=== PATIENT | male | born 1955 | race Two or more races ===

== ENCOUNTER 2017-10-02 12:47 | Emergency (ER) | payer BC ==
[2017-10-02 12:52] VITALS: BP 119/74; PULSE 100; TEMP 99; BMI 21.9
--- NOTE | 2017-10-02 14:34 | PDOC ---
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 Pt reports this has been happening intermittently since New Year's however it has always resolved without any intervention. Pt reports this current swelling has been going on for about one week, however he came for evaluation today due to his edema not resolving and his legs becoming painful. He endorses some warmth in his legs with erythema, however the erythema has mostly resolved. He denies any lesions, lacerations, abrasions, and weeping of his leg. Pt denies fever/chills , SOB, CP/discomfort, palpitations, abdominal pain, difficulties urinating ( including dysuria and polyuria), back pain. Pt admits to intermittently eating salty foods, however only had some salted sunflower seeds recently. Pt denies any long car rides, plane flights, exogenous hormones. PCP: Dr. Anne ([place]?) <Stephan Last - Last Filed: 10/02/17 23:39> - General Chief Complaint: Edema Stated Complaint: LEG PAIN (PCP SENT) Time Seen by Provider: 10/02/17 14:24 Past History <Aki Beckman - Last Filed: 10/02/17 17:45> - Past Medical History COPD: No - Suicide/Smoking/Psychosocial Hx Smoking History: Current every day smoker Have you smoked in the past 12 months: Yes Number of Cigarettes Smoked Daily: 30 Information on smoking cessation initiated: Yes 'Breaking Loose' booklet given: 10/02/17 Hx Alcohol Use: No Drug/Substance Use Hx: No Substance Use Type: Alcohol <Stephan Last - Last Filed: 10/02/17 23:39> - Past Medical History Allergies/Adverse Reactions: Allergies Allergy/AdvReac Type Severity Reaction Status Date / Time No Known Allergies Allergy Verified 10/02/17 12:48 Review of Systems - Review of Systems Able to Perform ROS?: Yes Constitutional: No: Chills, Fever, Night Sweats, Weakness HEENTM: No: Blurred Vision, Nose Congestion, Throat Pain Respiratory: No: Cough, Shortness of Breath, Wheezing Cardiac (ROS): Yes: Edema. No: Chest Pain, Irregular Heart Rate, Lightheadedness, Palpitations, Syncope, Chest Tightness ABD/GI: No: Abdominal Distended, Constipated, Diarrhea, Nausea, Vomiting, Abdominal cramping : No: Dysuria, Frequency, Flank Pain, Incontinence Musculoskeletal: No: Back Pain, Neck Pain Integumentary: Yes: Erythema. No: Lesions, Rash Neurological: No: Headache, Numbness, Pre-Existing Deficit, Tingling Psychiatric: No: Anxiety, Depression Endocrine: No: Increased Thirst Hematologic/Lymphatic: No: Blood Clots, Easy Bleeding, Easy Bruising <Stephan Last - Last Filed: 10/02/17 23:39> *Physical Exam - Vital Signs Last Vital Signs Temp Pulse Resp BP Pulse Ox 99.0 F 100 H 18 119/74 100 10/02/17 12:49 10/02/17 12:49 10/02/17 12:49 10/02/17 12:49 10/02/17 12:49 <Aki Beckman - Last Filed: 10/02/17 17:45> - Vital Signs Last Vital Signs Temp Pulse Resp BP Pulse Ox 99.0 F 100 H 18 119/74 100 10/02/17 12:49 10/02/17 12:49 10/02/17 12:49 10/02/17 12:49 10/02/17 12:49 - Physical Exam Comments: 10/02/17 14:45 GEN: NAD, awake, alert and oriented, laying in bed HEENT: NC/AT, EOMI, JF, moist mucosa Neck: Soft, No JVD LUNGS: Diminished bibasilar breath sounds CARDIAC: RRR, 2/6 systolic murmur at the apex appreciated BACK: No CVA tenderness EXT: Warm, bilateral 3+ pitting edema without weeping noted, no lacerations/ abrasions noted, some tenderness with edema assessment, 2+ DP pulses, cap refill <2sec. <Stephan Last - Last Filed: 10/02/17 23:39> Heart Score/ECG Review #1 General ECG Interpretation: Sinus Rhythm, Normal Rate, Normal Intervals, No acute ischemic changes 05/03/18 16:45 VT interval 130ms, QTc 452 <Stephan Last - Last Filed: 10/02/17 23:39> ED Treatment Course - LABORATORY CBC & Chemistry Diagram: 10/02/17 14:50 10/02/17 14:34 - ADDITIONAL ORDERS Additional order review: Laboratory Results 10/02/17 14:34 Sodium 135 L Potassium 4.0 Chloride 104 Carbon Dioxide 23 Anion Gap 8 BUN 8 D Creatinine 0.9 Creat Clearance w eGFR > 60 Random Glucose 80 Calcium 7.6 L Total Bilirubin 1.5 H D AST 63 H D ALT 27 D Alkaline Phosphatase 218 H D Troponin I < 0.02 B-Natriuretic Peptide 1153.97 H Total Protein 6.6 Albumin 2.0 L D 10/02/17 14:50 RBC 2.69 L D MCV 101.4 H MCHC 34.5 RDW 17.3 H D MPV 8.5 Neutrophils % 64.0 Lymphocytes % 20.5 Monocytes % 13.6 H Eosinophils % 1.1 Basophils % 0.8 - Medications Given in the ED: ED Medications Discontinued Medications Generic Name Dose Route Start Last Admin Trade Name Freq PRN Reason Stop Dose Admin Folic Acid 1 mg 10/02/17 15:22 10/02/17 15:40 Folic Acid - PO 10/02/17 15:23 1 mg ONCE ONE Administration Furosemide 40 mg 10/02/17 14:35 10/02/17 14:55 Lasix Injection - IVPUSH 10/02/17 14:36 40 mg ONCE ONE Administration <Aki Beckman - Last Filed: 10/02/17 17:45> - LABORATORY CBC & Chemistry Diagram: 10/02/17 14:50 10/02/17 14:34 <Stephan Last - Last Filed: 10/02/17 23:39> Medical Decision Making - Medical Decision Making 10/02/17 14:39 Highly suspicious for new onset CHF --CBC, CMP, Troponin, BNP --CXR, EKG --Lasix 40mg IVP once --Will likely need echocardiogram and cardiology evaluation 10/02/17 15:02 CXR without effusions; labs pending 10/02/17 15:26 CBC result with macrocytic anemia --Folic acid given PO once 10/02/17 16:51 On interview with attending, pt reports drinking a 12-pack per day with his last drink at 11:30am this morning (10/02) --Librium 50mg PO once --Initiated librium protocol More likely anasarca picture with 3rd spacing of fluid 10/02/17 17:16 Pt refusing librium dosage Also refusing to be admitted --Pt and fiance present at bedside and have been made aware of the risks of refusing treatment and admission including, but not limited to worsening liver function, worsening heart function, worsening kidney function, encephalopathy, and even . Pt is of sound mind and can make decisions. 10/02/17 17:22 --Patient signed AMA; IV to be taken out by nursing staff <Stephan Last - Last Filed: 10/02/17 23:39> *DC/Admit/Observation/Transfer <Aki Beckman - Last Filed: 10/02/17 17:45> <Stephan Last - Last Filed: 10/02/17 23:39> Diagnosis at time of Disposition: Liver failure Qualifiers: Liver failure chronicity: acute Hepatic coma status: without hepatic coma Qualified Code(s): K72.00 - Acute and subacute hepatic failure without coma - Discharge Dispostion Disposition: AGAINST MEDICAL ADVICE Condition at time of disposition: Fair - Referrals Referrals: [facility] [place] [facility] [place] [Provider Group] - Patient Instructions Printed Discharge Instructions: Heart Failure, DI for Cirrhosis Additional Instructions: You are leaving the emergency department AGAINST MEDICAL ADVICE. This puts you at risk for worsening leg swelling, worsening heart function, worsening liver function, disability or even . Return to the emergency department as soon as possible to complete your evaluation. We are also providing a referral to a primary care clinic in case you would prefer to follow-up there, although we strongly advise return to the emergency department as soon as possible. - Post Discharge Activity Forms/Work/School Notes: Back to Work
[2017-10-02] MEDS ORDERED: FUROSEMIDE 40 MG/4 ML INJECTABLE VIAL IVPUSH ONE (14:35)
[2017-10-02] MEDS ORDERED: FUROSEMIDE 40 MG/4 ML INJECTABLE VIAL ONE (14:54)
[2017-10-02 15:02] LABS: BASO % 0.8 % (0-2.0); EOS % 1.1 % (0-4.5); HEMATOCRIT 27.3 % (35.4-49); HEMOGLOBIN 9.4 GM/dL (11.7-16.9); LYMPH % 20.5 % (8-40); MCHC 34.5 g/dl (32.0-35.9); MEAN CELL VOLUME 101.4 fl (80-96); MEAN PLT VOLUME 8.5 fl (7.5-11.1); MONO % 13.6 % (3.8-10.2); PLATELET COUNT 93 K/MM3 (134-434); RBC 2.69 M/mm3 (4.00-5.60); RDW 17.3 % (11.9-15.9); WHITE BLOOD COUNT 7.8 K/mm3 (4.0-10.0)
[2017-10-02] MEDS ORDERED: FOLIC ACID 1 MG TABLET (FP) PO ONE (15:22)
[2017-10-02 15:30] LABS: ANION GAP 8 (8-16); BILIRUBIN,TOTAL 1.5 mg/dL (0.2-1.0); BLOOD UREA NITROGEN 8 mg/dL (7-18); CALCIUM 7.6 mg/dL (8.5-10.1); CHLORIDE 104 mmol/L (98-107); CO2 23 mmol/L (21-32); CREATININE 0.9 mg/dL (0.7-1.3); GLUCOSE,RANDOM 80 mg/dL (74-106); SGOT/AST 63 U/L (15-37); SGPT/ALT 27 U/L (12-78); SODIUM 135 mmol/L (136-145); TOT PROT 6.6 g/dl (6.4-8.2)
[2017-10-02 15:33] LABS: ALK PHOS 218 U/L (45-117); N-TERMINAL BNP 1153.97 pg/ml (5-125)
[2017-10-02] MEDS ORDERED: FOLIC ACID 1 MG TABLET (FP) ONE (15:39)
[2017-10-02] MEDS ORDERED: chlordiazePOXIDE HCL 25 MG CAPSULE PO ONE (16:48)
[2017-10-02] MEDS ORDERED: chlordiazePOXIDE HCL 25 MG CAPSULE PO PRN (16:49)
--- NOTE | 2017-10-02 16:51 | PDOC ---
Attending Attestation - Resident Resident Name: Stephan Last - ED Attending Attestation I have performed the following: I have examined & evaluated the patient, The case was reviewed & discussed with the resident, I agree w/resident's findings & plan, Exceptions are as noted - HPI HPI: 10/02/17 17:21 The patient is a 62 year old male, with a significant past medical history of IVDA without relapses for 2 years (on methadone), ETOH abuse (daily 12 pack beer ) who presents to the emergency department with bilateral lower extremity pain, warmth and edema for the past week. The patient states that this has been intermittently occurring since June 2017 and usually resolves on its own without needing any intervention. However, the patient reports that he decided to come in today for evaluation because this current episode has been getting progressively worse instead of better. He had an US done by that vascular doctor that was reportedly negative for DVT but due to the swelling, they advised him to come to the ED. Last drink was 11am this morning. The patient denies any fever, chills, headache, dizziness, shortness of breath, chest pain, abdominal pain, back pain or dysuria. Denies tremors, hallucinations. Denies any sick contacts or recent/long travel. Allergies: None reported. Past Surgical History: None reported. Social History: Current everyday smoker (x 40 years). Denies drug use. PCP: Dr. Kim - Physicial Exam PE: 10/02/17 17:21 GENERAL: Awake, alert, and fully oriented, in no acute distress. HEAD: No signs of trauma. EYES: PERRLA, EOMI, sclera anicteric, conjunctiva clear. ENT: Auricles normal inspection, hearing grossly normal, nares patent, oropharynx clear without exudates. Moist mucosa. NECK: Normal ROM, supple, no lymphadenopathy, JVD or masses. LUNGS: Breath sounds equal, clear to auscultation bilaterally. No wheezes and no crackles. HEART: Regular rate and rhythm, normal S1 and S2, no murmurs, rubs or gallops. ABDOMEN: Soft, nontender, normoactive bowel sounds. No guarding, no rebound. No masses. No dullness to percussion. EXTREMITIES: Warm, bilateral 3+ pitting edema without weeping. No lacerations/ abrasions noted, some tenderness with edema, 2+ DP pulses, capillary refill < 2 seconds. BACK: No midline spinal tenderness in cervical/thoracic/lumbar region. NEUROLOGICAL: Normal speech, cranial nerves intact, negative pronator drift, 5/ 5 strength in all 4 extremities, normal sensation to light touch in all 4 extremities, normal cerebellar exam, normal gait, normal reflexes and tone. SKIN: Warm, dry, normal turgor, no rashes or lesions noted. - Medical Decision Making 10/02/17 16:49 62yo M hx IVDU now on methadone maintenance, daily etoh abuse presents to the ED with 3 months of LE edema. Vitals unremarkable. Exam with 3+ symmetric LE edema. Labs with macrocytic anemia, thrombocytopenia, hypoalbunemia, mildly elevated LFTs consistent with likely alcoholic liver failure, less likely heart failure. Pt initially amenable for admission for workup including echo, rpt LE US, further labs and treatment, however shortly afterwards tells the nurse that he does not want to stay overnight because he states he is claustrophobic and does not feel "mentally prepared" for an overnight stay in the hospital at this time. He states he needs a few days to mentally prepare in order to be admitted to the hospital. The patient is clinically sober, free from distracting injury, appears to have intact insight and judgment and reason and in my opinion has the capacity to make decisions. The patient presents with LE edema. I have explained that I am concerned that this may represent liver or heart failure; he has verbalized an understanding of my concerns. I have discussed the need for admission to get more information about potential causes of the patients leg swelling. I have told the patient that if they leave, they could get much worse, could become critically ill, and could possibly become disabled or . I have offered to give the patient more pain medication. I have discussed these concerns with the patients mazin who is at the bedside and she is unable to convince him to stay for further evaluation. The patient is not willing to undergo an echo or LE US. He is unwilling to stay overnight for monitoring. He is refusing any further care and is leaving against medical advice. I am unable to convince the patient to stay, I have asked them to return as soon as possible to complete their evaluation. I have referred him to the primary care clinic for quick follow up if he prefers to go there instead of return to the ED. I have answered all their questions.
[2017-10-02] MEDS ORDERED: THIAMINE HCL 100 MG TABLET (FP) PO ONE (16:56)
[2017-10-02] MEDS ORDERED: chlordiazePOXIDE HCL 25 MG CAPSULE ONE (16:56)
[2017-10-02] MEDS ORDERED: chlordiazePOXIDE HCL 25 MG CAPSULE PO SCH (23:00)
--- NOTE | 2017-10-03 09:43 | EKG ---
Test Reason : Blood Pressure : / mmHG Vent. Rate : 085 BPM Atrial Rate : 085 BPM P-R Int : 130 ms QRS Dur : 086 ms QT Int : 380 ms P-R-T Axes : 069 048 054 degrees QTc Int : 452 ms NORMAL SINUS RHYTHM NORMAL ECG NO PREVIOUS ECGS AVAILABLE Confirmed by NARCISA LOYD MD ([id number]) on 10/03/2017 9:42:45 AM Referred By: Confirmed By:NARCISA LOYD MD
[2017-10-03] MEDS ORDERED: chlordiazePOXIDE HCL 25 MG CAPSULE PO SCH (17:00)
[2017-10-04] MEDS ORDERED: chlordiazePOXIDE 5 MG CAPSULE PO SCH (17:00)
== END 2017-10-02 18:02 | disposition left against medical advice (07) ==
LOC: JER 12:47
PROC: 3E033GC Introduction of Other Therapeutic Substance into Peripheral Vein, Percutaneous Approach (ICD-10-PCS; principal; 2017-10-02)
DX: K72.00 Acute and subacute hepatic failure without coma (principal); F11.20 Opioid dependence, uncomplicated; F17.210 Nicotine dependence, cigarettes, uncomplicated
CPT/HCPCS: 36415; 71045-TC-FY; 80053; 83880; 84484; 85025; 93005; 93010; 99283-25

== ENCOUNTER 2017-10-06 11:34 | Observation (INO) | payer BC ==
[2017-10-06 11:53] VITALS: BMI 21.9
--- NOTE | 2017-10-06 12:26 | PDOC ---
History of Present Illness - General Chief Complaint: Edema Stated Complaint: REVISIT, LEG PAIN Time Seen by Provider: 10/06/17 12:02 History Source: Patient Exam Limitations: No Limitations - History of Present Illness Initial Comments: This is a 62 YOM with h/o prior IVDA (sober x2 years and now on methadone), current EtOH abuse (12 beers/day), and 40 pack-year h/o smoking cigarettes ( current smoker) who p/w intermittent bilateral lower leg edema, pain, and warmth for the past 5 months which has been worse for the past 2-3 weeks. He was seen here in the ED for the same thing on 10/02/17. He reports having seen a vascular specialist who did a doppler study of the BLE which he reports was negative for DVT, but after that study they recommended he come into the ED for further evaluation. The patient had a normal EKG and lab work was remarkable for findings consistent with alcoholic liver failure. He did not want the recommended admission for echocardiogram, repeat doppler study, and cardiac consultation at that time because of his work. Since that time, the patient notes continued/unchanged symptoms including up to 8/10 fluctuating bilateral leg pain, BLE edema and redness. This has been unrelieved with elevation. His PCP is Dr. Kim. Past History - Past Medical History Allergies/Adverse Reactions: Allergies Allergy/AdvReac Type Severity Reaction Status Date / Time No Known Allergies Allergy Verified 10/06/17 11:50 Home Medications: Ambulatory Orders NK [No Known Home Medication] 10/06/17 COPD: No Other medical history: DENIES. - Suicide/Smoking/Psychosocial Hx Smoking History: Current every day smoker Have you smoked in the past 12 months: Yes Number of Cigarettes Smoked Daily: 20 Information on smoking cessation initiated: No 'Breaking Loose' booklet given: 10/02/17 Hx Alcohol Use: No Drug/Substance Use Hx: No Substance Use Type: Alcohol Review of Systems - Review of Systems Able to Perform ROS?: Yes Constitutional: No: Chills, Fever, Unexplained wgt Loss HEENTM: No: Nose Congestion, Throat Pain Respiratory: No: Cough, Shortness of Breath Cardiac (ROS): Yes: Edema. No: Chest Pain, Irregular Heart Rate, Lightheadedness, Palpitations, Syncope ABD/GI: No: Constipated, Diarrhea, Nausea, Vomiting, Tarry Stools : No: Burning, Dysuria Musculoskeletal: Yes: Muscle Pain (bilateral legs). No: Back Pain, Neck Pain Integumentary: Yes: Erythema (lower legs). No: Bruising, Rash Neurological: No: Headache, Numbness, Tingling, Weakness, Dizziness Endocrine: No: Unexplained Weight Gain, Unexplained Weight Loss *Physical Exam - Vital Signs Last Vital Signs Temp Pulse Resp BP Pulse Ox 98.7 F 90 19 126/66 96 10/06/17 11:50 10/06/17 11:50 10/06/17 11:50 10/06/17 11:50 10/06/17 11:50 - Physical Exam General Appearance: Yes: Nourished, Appropriately Dressed, Other (very pleasant , alert, oriented adult male answering questions appropriately, appears comfortable sitting in vertical room). No: Apparent Distress, Alcohol on Breath HEENT: positive: EOMI, EDY, Normal Voice, Hearing Grossly Normal. negative: Scleral Icterus (R), Scleral Icterus (L), Nasal Congestion Neck: positive: Trachea midline, Supple. negative: Tender, Rigid Respiratory/Chest: positive: Lungs Clear, Normal Breath Sounds. negative: Respiratory Distress, Labored Respiration, Rapid RR, Decreased Breath Sounds, Crackles, Rhonchi, Stridor, Wheezing Cardiovascular: positive: Regular Rhythm, Regular Rate, S1, S2, Edema. negative : JVD, Murmur Vascular Pulses: Dorsalis-Pedis (R): 2+, Doralis-Pedis (L): 2+ Gastrointestinal/Abdominal: positive: Normal Bowel Sounds, Soft, Organomegaly ( mild hepatomegaly, no splenomegaly). negative: Tender, Pulsatile Mass, Guarding Musculoskeletal: positive: Normal Inspection. negative: Decreased Range of Motion, Vertebral Tenderness Extremity: positive: Normal Capillary Refill, Normal Inspection, Normal Range of Motion, Other (+varicosities BLE). negative: Tender, Cyanosis Integumentary: positive: Normal Color, Dry, Warm. 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 negative: Facial Droop, Numbness, Sensory Deficit, Confused, Disoriented ED Treatment Course - LABORATORY CBC & Chemistry Diagram: 10/06/17 14:27 05/07/18 13:05 Medical Decision Making - Medical Decision Making Adult patient p/w leg edema. Initial Vital Signs Temp Pulse Resp BP Pulse Ox 98.7 F 90 19 126/66 96 10/06/17 11:50 10/06/17 11:50 10/06/17 11:50 10/06/17 11:50 10/06/17 11:50 Exam: Heart/lungs normal exams, mild hepatomegaly, 3+ pitting edema BLE with mild erythema and warmth and tenderness, +varicosities. Bedside cardiac US: no pericardial effusion, good contractility, no pleural effusion, no intraperitoneal fluid. DDX IBNLT: CHF, liver failure, kidney failure, vascular insufficiency, hypoalbuminemia, DVT, cellulitis, etc. W/U ordered: CBCD CMP Mg Phos Troponin CK CKMB BNP EKG CXR TX ordered: EKG: CXR: NADP Laboratory Tests 10/06/17 10/06/17 10/06/17 13:05 13:05 13:05 WBC RBC Hgb Hct MCV MCH MCHC RDW Plt Count MPV Neutrophils % Lymphocytes % Monocytes % Eosinophils % Basophils % Sodium Cancelled 135 L Potassium Cancelled 4.2 Chloride Cancelled 103 Carbon Dioxide Cancelled 26 Anion Gap Cancelled 6 L BUN Cancelled 9 Creatinine Cancelled 0.8 Creat Clearance w eGFR Cancelled > 60 Random Glucose Cancelled 88 Calcium Cancelled 7.5 L Phosphorus Cancelled 2.9 Magnesium Cancelled 2.4 Total Bilirubin Cancelled 1.1 H D AST Cancelled 41 H D ALT Cancelled 21 D Alkaline Phosphatase Cancelled 211 H Creatine Kinase 70 Troponin I < 0.02 B-Natriuretic Peptide 475.06 H Total Protein Cancelled 7.0 Albumin Cancelled 2.2 L Urine Color Urine Appearance Urine pH Ur Specific [place] Urine Protein Urine Glucose (UA) Urine Ketones Urine Blood Urine Nitrite Urine Bilirubin Urine Urobilinogen Ur Leukocyte Esterase Blood Type Antibody Screen 10/06/17 10/06/17 10/06/17 13:05 13:20 14:27 WBC 7.0 RBC 2.79 L Hgb 10.0 L Hct 28.8 L MCV 103.0 H MCH 35.7 H MCHC 34.6 RDW 16.7 H Plt Count 121 L D MPV 8.2 Neutrophils % 68.3 Lymphocytes % 18.4 Monocytes % 11.0 H Eosinophils % 1.5 Basophils % 0.8 Sodium Potassium Chloride Carbon Dioxide Anion Gap BUN Creatinine Creat Clearance w eGFR Random Glucose Calcium Phosphorus Magnesium Total Bilirubin AST ALT Alkaline Phosphatase Creatine Kinase Troponin I B-Natriuretic Peptide Total Protein Albumin Urine Color Ltyellow Urine Appearance Clear Urine pH 6.0 Ur Specific [place] 1.004 Urine Protein Negative Urine Glucose (UA) Negative Urine Ketones Negative Urine Blood Negative Urine Nitrite Negative Urine Bilirubin Negative Urine Urobilinogen Negative Ur Leukocyte Esterase Negative Blood Type O POSITIVE Antibody Screen Negative The patient is unsafe for discharge at this time. They require further hospital observation, workup, and treatment. Spoke with Dr. Mcfarland. In agreement patient to be admitted to: Inpatient Tele. Decision to Admit order placed to Dr. Mcfarland. *DC/Admit/Observation/Transfer Diagnosis at time of Disposition: Leg edema, Alcoholism, Anemia, Hypoalbuminemia, Thrombocytopenia - Discharge Dispostion Condition at time of disposition: Guarded Admit: Yes - Referrals Referrals: Scarlett iKm MD [Primary Care Provider] - - Patient Instructions - Post Discharge Activity
[2017-10-06 13:33] LABS: URINE APPEARANCE CLEAR; URINE BILIRUBIN NEGATIVE (<2.0 mg/dL); URINE COLOR LTYELLOW; URINE GLUCOSE (UA) NEGATIVE (NEGATIVE); URINE KETONE NEGATIVE (NEGATIVE); URINE LEUK ESTERASE NEGATIVE (NEGATIVE); URINE NITRITE NEGATIVE (NEGATIVE); URINE PROTEIN NEGATIVE (NEGATIVE); URINE UROBILINOGEN NEGATIVE mg/dL (0.2-1.0)
--- NOTE | 2017-10-06 13:53 | PDOC ---
Attending Attestation - Resident Resident Name: Kimberly Kendrick - ED Attending Attestation I have performed the following: I have examined & evaluated the patient, The case was reviewed & discussed with the resident, I agree w/resident's findings & plan - HPI HPI: 10/06/17 13:50 62y/o M h/o PSA on methadone, current etoh abuse returns to ED for evaluation/ management of worsening b/l leg edema. Pt previously signed out AMA a few days ago after recommended admission for cardiac/liver/vascular workup. Presents again now 2/2 persistent and worsening sxs. - Physicial Exam PE: 10/06/17 13:52 vital signs normal Well-appearing, speaking full sentences Heart and lungs are clear Abdomen is soft, nondistended. Liver edge is palpable. Bilateral 2-3+ pitting edema with venous stasis changes, no cellulitis. Neurovascularly intact otherwise. - Medical Decision Making 10/06/17 13:52 62-year-old male with EtOH abuse presents with worsening bilateral leg edema, question liver disease versus right-sided heart failure versus vascular pathology. No cardiopulmonary complaints. Labs, EKG Proceed with admission for further workup as per prior plan. Heart Score/ECG Review #1 ECG reviewed & interpreted by me at: 13:11 General ECG Interpretation: Sinus Rhythm, Normal Rate (84), Normal Intervals ( qtc 463), No acute ischemic changes
[2017-10-06 14:35] LABS: BASO % 0.8 % (0-2.0); EOS % 1.5 % (0-4.5); HEMATOCRIT 28.8 % (35.4-49); LYMPH % 18.4 % (8-40); MCH 35.7 pg (25.7-33.7); MCHC 34.6 g/dl (32.0-35.9); MEAN PLT VOLUME 8.2 fl (7.5-11.1); NEUT % 68.3 % (42.8-82.8); PLATELET COUNT 121 K/MM3 (134-434); RBC 2.79 M/mm3 (4.00-5.60); RDW 16.7 % (11.9-15.9)
[2017-10-06 14:38] LABS: CHLORIDE 103 mmol/L (98-107); POTASSIUM 4.2 mmol/L (3.5-5.1); SODIUM 135 mmol/L (136-145)
[2017-10-06 14:46] LABS: ALBUMIN 2.2 g/dl (3.4-5.0); ALK PHOS 211 U/L (45-117); ANION GAP 6 (8-16); BILIRUBIN,TOTAL 1.1 mg/dL (0.2-1.0); BLOOD UREA NITROGEN 9 mg/dL (7-18); CALCIUM 7.5 mg/dL (8.5-10.1); CO2 26 mmol/L (21-32); CREATININE 0.8 mg/dL (0.7-1.3); GLUCOSE,RANDOM 88 mg/dL (74-106); MAGNESIUM 2.4 mg/dL (1.8-2.4); PHOSPHOROUS 2.9 mg/dL (2.5-4.9); SGOT/AST 41 U/L (15-37); SGPT/ALT 21 U/L (12-78)
[2017-10-06 15:00] LABS: INR 1.14 (0.82-1.09); PROTHROMBIN TIME (PATIENT) 12.9 SEC (9.7-13.0)
[2017-10-06 15:03] LABS: ACTIVATED PTT 33.5 SECONDS (26.9-34.4)
--- NOTE | 2017-10-06 21:18 | HP ---
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 He was seen here in the ED for the same thing on 10/02/17. He reports having seen a vascular specialist who did a doppler study of the BLE which he reports was negative for DVT, but after that study they recommended he come into the ED for further evaluation. The patient had a normal EKG and lab work was remarkable for findings consistent with alcoholic liver failure. He did not want the recommended admission for echocardiogram, repeat doppler study, and cardiac consultation at that time because of his work. Since that time, the patient notes continued/unchanged symptoms including up to 8/10 fluctuating bilateral leg pain, BLE edema and redness. This has been unrelieved with elevation. His PCP is Dr. Kim. - Smoking History Smoking history: Current every day smoker Have you smoked in the past 12 months: Yes Aproximately how many cigarettes per day: 20 - Alcohol/Substance Use Hx Alcohol Use: No - Social History Other Social History: etoh abuse. ivda Home Medications - Allergies Allergies/Adverse Reactions: Allergies Allergy/AdvReac Type Severity Reaction Status Date / Time No Known Allergies Allergy Verified 10/06/17 11:50 - Home Medications Home Medications: Ambulatory Orders Methadone [Dolophine -] 25 mg PO DAILY 10/07/17 Physical Examination Vital Signs: Vital Signs Temperature 98 F 10/06/17 20:52 Pulse Rate 92 H 10/06/17 20:52 Respiratory Rate 16 10/06/17 20:52 Blood Pressure 125/74 10/06/17 20:52 O2 Sat by Pulse Oximetry (%) 97 10/06/17 20:52 HENT: Yes: Atraumatic Neck: Yes: Supple Cardiovascular: Yes: Regular Rate and Rhythm Respiratory: Yes: CTA Bilaterally Gastrointestinal: Yes: Normal Bowel Sounds Extremities: Yes: WNL Edema: Yes Edema: LLE: 2+, RLE: 2+ (mild erythema) Neurological: Yes: Alert, Oriented Labs: CBC, BMP 10/06/17 14:27 10/06/17 13:05 Problem List - Problems (1) Anemia Assessment/Plan: fu cbc Code(s): D64.9 - ANEMIA, UNSPECIFIED (2) Leg edema Assessment/Plan: on diuretics cardiolohy consult echo no dvt per er note will give a dose of abx'to cover for infection if any Code(s): R60.0 - LOCALIZED EDEMA (3) Alcohol dependence with uncomplicated withdrawal Code(s): F10.230 - ALCOHOL DEPENDENCE WITH WITHDRAWAL, UNCOMPLICATED (4) Hypoalbuminemia Code(s): E88.09 - [facility] DISORDERS OF PLASMA-PROTEIN METABOLISM, NEC (5) Thrombocytopenia Assessment/Plan: due to etoh abuse Code(s): D69.6 - THROMBOCYTOPENIA, UNSPECIFIED Assessment/Plan Laboratory Tests 10/06/17 10/06/17 10/06/17 13:05 13:05 13:05 WBC RBC Hgb Hct MCV MCH MCHC RDW Plt Count MPV Neutrophils % Lymphocytes % Monocytes % Eosinophils % Basophils % PT with INR INR PTT (Actin FS) Sodium Cancelled 135 L Potassium Cancelled 4.2 Chloride Cancelled 103 Carbon Dioxide Cancelled 26 Anion Gap Cancelled 6 L BUN Cancelled 9 Creatinine Cancelled 0.8 Creat Clearance w eGFR Cancelled > 60 Random Glucose Cancelled 88 Calcium Cancelled 7.5 L Phosphorus Cancelled 2.9 Magnesium Cancelled 2.4 Total Bilirubin Cancelled 1.1 H D AST Cancelled 41 H D ALT Cancelled 21 D Alkaline Phosphatase Cancelled 211 H Creatine Kinase 70 Troponin I < 0.02 B-Natriuretic Peptide 475.06 H Total Protein Cancelled 7.0 Albumin Cancelled 2.2 L Urine Color Urine Appearance Urine pH Ur Specific Buhl Urine Protein Urine Glucose (UA) Urine Ketones Urine Blood Urine Nitrite Urine Bilirubin Urine Urobilinogen Ur Leukocyte Esterase Blood Type Antibody Screen 10/06/17 10/06/17 10/06/17 13:05 13:20 14:27 WBC 7.0 RBC 2.79 L Hgb 10.0 L Hct 28.8 L MCV 103.0 H MCH 35.7 H MCHC 34.6 RDW 16.7 H Plt Count 121 L D MPV 8.2 Neutrophils % 68.3 Lymphocytes % 18.4 Monocytes % 11.0 H Eosinophils % 1.5 Basophils % 0.8 PT with INR INR PTT (Actin FS) Sodium Potassium Chloride Carbon Dioxide Anion Gap BUN Creatinine Creat Clearance w eGFR Random Glucose Calcium Phosphorus Magnesium Total Bilirubin AST ALT Alkaline Phosphatase Creatine Kinase Troponin I B-Natriuretic Peptide Total Protein Albumin Urine Color Ltyellow Urine Appearance Clear Urine pH 6.0 Ur Specific Buhl 1.004 Urine Protein Negative Urine Glucose (UA) Negative Urine Ketones Negative Urine Blood Negative Urine Nitrite Negative Urine Bilirubin Negative Urine Urobilinogen Negative Ur Leukocyte Esterase Negative Blood Type O POSITIVE Antibody Screen Negative 10/06/17 14:27 WBC RBC Hgb Hct MCV MCH MCHC RDW Plt Count MPV Neutrophils % Lymphocytes % Monocytes % Eosinophils % Basophils % PT with INR 12.90 INR 1.14 PTT (Actin FS) 33.5 Sodium Potassium Chloride Carbon Dioxide Anion Gap BUN Creatinine Creat Clearance w eGFR Random Glucose Calcium Phosphorus Magnesium Total Bilirubin AST ALT Alkaline Phosphatase Creatine Kinase Troponin I B-Natriuretic Peptide Total Protein Albumin Urine Color Urine Appearance Urine pH Ur Specific Buhl Urine Protein Urine Glucose (UA) Urine Ketones Urine Blood Urine Nitrite Urine Bilirubin Urine Urobilinogen Ur Leukocyte Esterase Blood Type Antibody Screen Active Medications Generic Name Dose Route Start Last Admin Trade Name Freq PRN Reason Stop Dose Admin Acetaminophen 650 mg 10/06/17 21:46 Tylenol - PO Q6H PRN FEVER Chlordiazepoxide HCl 25 mg 10/07/17 14:52 10/07/17 16:01 Librium - PO 10/10/17 14:51 25 mg Q4H PRN Administration WITHDRAWAL(CONT SUBST) Furosemide 40 mg 10/07/17 11:00 10/07/17 11:53 Lasix Injection - IVPUSH 40 mg DAILY CAYETANO Administration Heparin Sodium (Porcine) 5,000 unit 10/06/17 22:00 10/07/17 14:01 Heparin - SQ 5,000 unit TID CAYETANO Administration Methadone HCl 25 mg 10/08/17 15:30 Dolophine - PO DAILY@0600 CAYETANO Nicotine 21 mg 10/07/17 01:30 10/07/17 01:19 Nicoderm Patch - TD 21 mg HS CAYETANO Administration Multivit/Folic Acid/Iron 1 tab 10/08/17 10:00 Vitamins (Sjr) - PO DAILY CAYETANO Spironolactone 25 mg 10/07/17 11:00 10/07/17 11:53 Aldactone - PO 25 mg DAILY CAYETANO Administration Thiamine HCl 100 mg 10/07/17 22:00 Vitamin B1 - PO HS CAYETANO
[2017-10-06] MEDS ORDERED: ACETAMINOPHEN 325 MG TABLET (FP) PO PRN (21:46)
[2017-10-06] MEDS ORDERED: CEFTRIAXONE 1 GM in DEXTROSE 5%-WATER - 50 ML IVPB ONE (22:00)
[2017-10-06] MEDS ORDERED: cefTRIAXone SODIUM 1 GM VIAL ONE (23:25)
[2017-10-06] MEDS ORDERED: DEXTROSE 5%-WATER - 50 ML IVPB ONE (23:25)
[2017-10-06] MEDS: HEPARIN NA (PORCINE) 5,000 UNITS/ML 1ML VIAL SQ SCH (23:36)
[2017-10-07] MEDS ORDERED: NICOTINE 21 MG/24 HOURS TOPICAL PATCH TD SCH (01:30)
[2017-10-07] MEDS: HEPARIN NA (PORCINE) 5,000 UNITS/ML 1ML VIAL SQ SCH ×2 (06:03→14:01)
[2017-10-07 06:52] LABS: BASO % 1.1 % (0-2.0); EOS % 2.9 % (0-4.5); HEMATOCRIT 26.6 % (35.4-49); HEMOGLOBIN 9.4 GM/dL (11.7-16.9); LYMPH % 25.8 % (8-40); MCHC 35.2 g/dl (32.0-35.9); MEAN CELL VOLUME 102.4 fl (80-96); MEAN PLT VOLUME 8.5 fl (7.5-11.1); MONO % 11.6 % (3.8-10.2); NEUT % 58.6 % (42.8-82.8); PLATELET COUNT 115 K/MM3 (134-434); RDW 16.7 % (11.9-15.9); WHITE BLOOD COUNT 6.2 K/mm3 (4.0-10.0)
--- NOTE | 2017-10-07 10:09 | EKG ---
Test Reason : Blood Pressure : / mmHG Vent. Rate : 084 BPM Atrial Rate : 084 BPM P-R Int : 126 ms QRS Dur : 082 ms QT Int : 392 ms P-R-T Axes : 068 038 050 degrees QTc Int : 463 ms POOR DATA QUALITY, INTERPRETATION MAY BE ADVERSELY AFFECTED NORMAL SINUS RHYTHM POSSIBLE LEFT ATRIAL ENLARGEMENT BORDERLINE ECG Confirmed by MD Bridgette, Dallin ([id number]) on 10/07/2017 10:09:41 AM Referred By: Confirmed By:Dallin Angeles MD
[2017-10-07 10:12] LABS: CHLORIDE 104 mmol/L (98-107); POTASSIUM 4.1 mmol/L (3.5-5.1); SODIUM 137 mmol/L (136-145)
--- NOTE | 2017-10-07 10:48 | PN ---
Progress Note (short form) - Note Progress Note: Chief Complaint: Events noted, notes reviewed, complaining of increasing bilateral lower extremity, denies any chest pain or dyspnea History of Present Illness: Seen and examined on . Full consult dictated - Current Medication List Current Medications: Current Medications Acetaminophen (Tylenol -) 650 mg PO Q6H PRN PRN Reason: FEVER Heparin Sodium (Porcine) (Heparin -) 5,000 unit SQ TID [facility] Last Admin: 10/07/17 06:03 Dose: 5,000 unit Nicotine (Nicoderm Patch -) 21 mg TD HS [facility] Last Admin: 10/07/17 01:19 Dose: 21 mg Review of Systems: Constitutional: Denies fever or chills Head and Neck: Denies Headaches, photophobia or blurring of vision Respiratory: Denies cough or sputum production Cardiovascular: As noted above Gastrointestinal: Denies nausea, vomiting, diarrhea or abdominal discomfort Genitourinary: Denies frequency, hesitancy or urgency Musculoskeletal: No symptoms reported Endocrine: No symptoms reported - Objective Vital Signs: Last Vital Signs Temp Pulse Resp BP Pulse Ox 98.5 F 92 H 16 133/62 99 10/07/17 09:31 10/07/17 09:31 10/07/17 09:31 10/07/17 09:31 10/06/17 23:39 Intake & Output 10/04/17 10/05/17 10/06/17 10/07/17 23:59 23:59 23:59 23:59 Intake Total 60 Balance 60 Weight 153 lb HEENT: Atraumatic, GRAY, EOMI Neck: Supple Negative JVD No Bruit Cardiovascular: S1 S2 Regular Rate and Rhythm No Murmurs Respiratory: CTA Bilaterally Gastrointestinal: Soft Benign Normal Bowel Sounds Ext: Bilateral 1-2+ Edema Labs: Troponin, BNP 10/06/17 10/06/17 13:05 13:05 Troponin I < 0.02 B-Natriuretic Peptide 475.06 H CBC, BMP 10/07/17 06:00 10/07/17 07:45 Hepatic Panel Total Bilirubin 1.1 mg/dL (0.2-1.0) H D 10/06/17 13:05 AST 41 U/L (15-37) H D 10/06/17 13:05 ALT 21 U/L (12-78) D 10/06/17 13:05 Alkaline Phosphatase 211 U/L (45-117) H 10/06/17 13:05 Albumin 2.2 g/dl (3.4-5.0) L 10/06/17 13:05 INR, PTT INR 1.14 (0.82-1.09) 10/06/17 14:27 Assessment/Plan 1. Bilateral lower extremity edema suggestive of chronic liver disease, no clinical indication of right sided heart failure or chronic kidney disease with protein-urea 2. Anemia and thrombocytopenia, probably related to chronic liver disease 3. History of recreational drug abuse 4. History of Alcohol abuse 5. History of tobacco abuse PLAN: 1. Obtain liver U/S 2. Recommend the addition of Nadolol pending verification of chronic liver disease 3. Recommend the addition of Lasix and Aldactone 4. Echocardiography to evaluate LV and RV size and function 5. Patient was counselled smoking cessation 6. Patient was counselled alcohol cessation 7. Patient was counselled recreational drug abuse cessation Dalila Samaniego MD
[2017-10-07] MEDS ORDERED: FUROSEMIDE 40 MG/4 ML INJECTABLE VIAL IVPUSH SCH (11:00)
[2017-10-07] MEDS ORDERED: SPIRONOLACTONE 25 MG TABLET (FP) PO SCH (11:00)
[2017-10-07 11:13] LABS: ALBUMIN 1.9 g/dl (3.4-5.0); ALK PHOS 188 U/L (45-117); ANION GAP 7 (8-16); BILIRUBIN,TOTAL 1.3 mg/dL (0.2-1.0); BLOOD UREA NITROGEN 9 mg/dL (7-18); CALCIUM 7.7 mg/dL (8.5-10.1); CO2 26 mmol/L (21-32); CREATININE 0.9 mg/dL (0.7-1.3); GLUCOSE,RANDOM 84 mg/dL (74-106); SGOT/AST 32 U/L (15-37); SGPT/ALT 17 U/L (12-78); TOT PROT 6.1 g/dl (6.4-8.2)
--- NOTE | 2017-10-07 11:36 | CONS ---
DATE OF CONSULTATION: 10/07/2017 REQUESTING PHYSICIAN: Beto Mcfarland MD CHIEF COMPLAINT: Increasing bilateral lower extremity edema, cardiovascular evaluation. HISTORY OF PRESENT ILLNESS: A 62-year-old male of descent with known history of tobacco abuse, alcohol abuse, recreational drug abuse, who presented to [facility] with increasing bilateral lower extremity edema which has been noted since June of 2017. Patient denied any history of hypertensive cardiovascular disease, diabetes mellitus, or hypercholesterolemia. Patient denied any history of coronary artery disease, angina pectoris, or congestive heart failure. Patient denied any history of chronic obstructive pulmonary disease. Edema worsened in the latter part of the day. Patient reported by a history of varicose veins post vein stripping several years ago. Patient denied any dyspnea, orthopnea, or paroxysmal nocturnal dyspnea. Patient denies any chest discomfort. Patient denies any palpitations, dizziness, lightheadedness, or syncope. Patient denies any fatigue or tiredness. PAST MEDICAL HISTORY: Varicose veins post stripping. PAST SURGICAL HISTORY: As noted above. SOCIAL HISTORY: A smoker. Admits to recreational drug abuse and alcohol abuse. 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 FAMILY HISTORY: No family history of premature coronary artery disease. ALLERGIES: None reported. MEDICAL THERAPY AT HOME: None. REVIEW OF SYSTEMS: Head and Neck: Denies headache, photophobia, blurring of vision. Respiratory: No cough or sputum production. Cardiovascular: As noted above. Gastrointestinal: Denies nausea, vomiting, diarrhea, abdominal discomfort. Genitourinary: No symptoms reported. Musculoskeletal: No symptoms reported. PHYSICAL EXAMINATION: Vital Signs: Blood pressure is 133/62 mmHg. Pulse rate is 92 beats per minute. Temperature 98.5. Head and Neck: Pupils equal and reactive to light and accommodation. Extraocular muscles are intact. Anicteric sclerae. Negative JVD. No bruit appreciated. Chest: Clear to auscultation and percussion. Cardiovascular: S1 and S2 regular. No murmurs, clicks, or gallops. Abdomen: Soft, benign. Normoactive bowel sounds. Extremities: Bilateral edema 1+ to 2+. Distal pulses: Right lower extremity 1+ to 2+; left lower extremity 1+ distal pulses. No calf tenderness. Electrocardiogram reveals sinus rhythm, within normal limit. Troponin less than 0.02. B-type natriuretic peptide was 475. CBC revealed a white cell count of 6.2, hemoglobin 9.4, platelet count 115. Sodium 137, potassium 4.1, BUN 9, creatinine 0.8, glucose 88. AST 41. INR was 1.14. ASSESSMENT: 1. Bilateral lower extremity edema suggestive of chronic liver disease. No clinical indication of right-sided heart failure or chronic kidney disease with proteinuria. 2. Anemia and thrombocytopenia, most likely related to chronic liver disease. 3. History of recreational drug abuse. 4. History of alcohol abuse. 5. History of tobacco abuse. RECOMMENDATION: 1. Obtain liver ultrasound. 2. Recommend the addition of nadolol, Lasix, and Aldactone therapies pending verification of chronic liver disease. 3. Echocardiography for evaluation of left ventricular and right ventricular size and function. 4. Patient was strongly counseled smoking cessation. 5. Patient was strongly counseled alcohol cessation. 6. Patient was strongly counseled recreational drug abuse cessation. Thank you for the kind referral. ESTEFANIA WATERS M.D. [id number]
--- NOTE | 2017-10-07 14:31 | PN ---
Progress Note, Physician - Current Medication List Current Medications: Active Medications Acetaminophen (Tylenol -) 650 mg PO Q6H PRN PRN Reason: FEVER Furosemide (Lasix Injection -) 40 mg IVPUSH DAILY [facility] Last Admin: 10/07/17 11:53 Dose: 40 mg Heparin Sodium (Porcine) (Heparin -) 5,000 unit SQ TID [facility] Last Admin: 10/07/17 06:03 Dose: 5,000 unit Nicotine (Nicoderm Patch -) 21 mg TD HS [facility] Last Admin: 10/07/17 01:19 Dose: 21 mg Spironolactone (Aldactone -) 25 mg PO DAILY [facility] Last Admin: 10/07/17 11:53 Dose: 25 mg - Objective Vital Signs: Vital Signs Temperature 98.2 F 10/07/17 10:00 Pulse Rate 96 H 10/07/17 10:00 Respiratory Rate 16 10/07/17 10:00 Blood Pressure 139/85 10/07/17 10:00 O2 Sat by Pulse Oximetry (%) 99 10/07/17 10:00 Constitutional: Yes: No Distress HENT: Yes: Atraumatic Neck: Yes: Supple, Tenderness Respiratory: Yes: CTA Bilaterally Gastrointestinal: Yes: Normal Bowel Sounds Extremities: Yes: WNL Edema: Yes Edema: LLE: 2+, RLE: 2+ Peripheral Pulses WNL: Yes Neurological: Yes: Alert, Oriented Labs: CBC, BMP 10/07/17 06:00 10/07/17 07:45 INR, PTT INR 1.14 (0.82-1.09) 10/06/17 14:27 Problem List - Problems (1) Anemia Assessment/Plan: fu cbc Code(s): D64.9 - ANEMIA, UNSPECIFIED (2) Leg edema Assessment/Plan: on diuretics cardiolohy consult echo no dvt per er note will give a dose of abx'to cover for infection if any Code(s): R60.0 - LOCALIZED EDEMA (3) Alcohol dependence with uncomplicated withdrawal Code(s): F10.230 - ALCOHOL DEPENDENCE WITH WITHDRAWAL, UNCOMPLICATED (4) Hypoalbuminemia Code(s): E88.09 - [facility] DISORDERS OF PLASMA-PROTEIN METABOLISM, NEC (5) Thrombocytopenia Assessment/Plan: due to etoh abuse Code(s): D69.6 - THROMBOCYTOPENIA, UNSPECIFIED Assessment/Plan pt has b/l seth edema with cellulitis awiting id consult echo done report reviewed chronic liver disease..on iv lasix and other diuretics if id clears him then possible dc
--- NOTE | 2017-10-07 14:48 | CONSULT ---
Consult Detox [facility] Reason for Current Admission/Consult: substance use Referred by:: Enoc Pérez MD - Alcohol/Substance Use Hx Alcohol Use: No Hx Substance Use: Yes Hx Substance Use Treatment: Yes (OTP 25mg daily, LDM 10/06 confirmed 25mg in [facility], brought bottle with him took) - Current Drug/Alcohol Use Alcohol Route: Oral Frequency: Daily Amount used: 12 beers Assessment Plan - Diagnosis (1) Alcohol dependence with uncomplicated withdrawal Status: Acute (2) Opioid dependence on agonist therapy Status: Acute (3) Anemia Status: Acute (4) Hypoalbuminemia Status: Acute (5) Leg edema Status: Acute (6) Thrombocytopenia Status: Acute (7) Liver failure Status: Acute Qualifiers: Liver failure chronicity: acute Hepatic coma status: without hepatic coma Qualified Code(s): K72.00 - Acute and subacute hepatic failure without coma - Plan Plan: chart, imagina, labs reviewed. case discussed with medical team taking care of patient. REcommend: 62 yo m w h/o OUD on MMTP 25mg daily, LDM in clinic 10/06 but took bottle today 25mg 10/07 there fore will restart in AM 25mg daily. Treat any symptoms of withdrawal with prn libirum, fluids, vitamins. Can refer back to [facility] for aftercare of inpatient detox if patient is in agreement when work up compmlete and if bed available.
--- NOTE | 2017-10-07 14:49 | CON.ID ---
Consult Consult Specialty:: infectious diseases Reason for Consultation:: bilat cellulitits of the legs - History of Present Illness History of Present Illness: 62 YOM with h/o prior IVDA (sober x2 years and now on methadone), current EtOH abuse (12 beers/day), and 40 pack-year h/o smoking cigarettes (current smoker) who p/w intermittent bilateral lower leg edema, pain, and warmth for the past 5 months which has been worse for the past 2-3 weeks. He was seen here in the ED for the same thing on 10/02/17. He reports having seen a vascular specialist who did a doppler study of the BLE which he reports was negative for DVT, but after that study they recommended he come into the ED for further evaluation. The patient had a normal EKG and lab work was remarkable for findings consistent with alcoholic liver failure. He did not want the recommended admission for echocardiogram, repeat doppler study, and cardiac consultation at that time because of his work. Since that time, the patient notes continued/unchanged symptoms including up to 8/10 fluctuating bilateral leg pain, BLE edema and redness. This has been unrelieved with elevation. His PCP is Dr. Kim. - History Source History Provided By: Medical Record Limitations to Obtaining History: Poor Historian - Alcohol/Substance Use Hx Alcohol Use: No - Smoking History Smoking history: Current every day smoker Have you smoked in the past 12 months: Yes Aproximately how many cigarettes per day: 20 Home Medications - Allergies Allergies/Adverse Reactions: Allergies Allergy/AdvReac Type Severity Reaction Status Date / Time No Known Allergies Allergy Verified 10/06/17 11:50 - Home Medications Home Medications: Ambulatory Orders Furosemide [Lasix] 40 mg PO DAILY #30 tablet 10/07/17 Methadone [Dolophine -] 25 mg PO DAILY 10/07/17 Miscellaneous Medical Supply [Outpatient Order] 1 each ASDIR #1 misc Nicotine Patch [Nicoderm Patch -] 21 mg TD HS #10 patch 10/07/17 Vitamins (Sjr) - 1 tab PO DAILY #30 tablet 10/07/17 Spironolactone [Aldactone -] 25 mg PO DAILY #30 tablet 10/07/17 Thiamine HCl [Vitamin B1 -] 100 mg PO HS #30 tablet 10/07/17 Review of Systems - Review of Systems Constitutional: reports: No Symptoms Eyes: reports: No Symptoms HENT: reports: No Symptoms Neck: reports: No Symptoms Cardiovascular: reports: No Symptoms Respiratory: reports: No Symptoms Gastrointestinal: reports: No Symptoms Genitourinary: reports: No Symptoms Integumentary: reports: Other Neurological: reports: Other Endocrine: reports: No Symptoms Hematology/Lymphatic: reports: No Symptoms Psychiatric: reports: No Symptoms Physical Exam Vital Signs: Vital Signs Temperature 98.2 F 10/07/17 10:00 Pulse Rate 96 H 10/07/17 10:00 Respiratory Rate 16 10/07/17 10:00 Blood Pressure 139/85 10/07/17 10:00 O2 Sat by Pulse Oximetry (%) 99 10/07/17 10:00 Constitutional: Yes: No Distress, Calm Neck: Yes: Supple, Trachea Midline Cardiovascular: Yes: Regular Rate and Rhythm Respiratory: Yes: Regular, CTA Bilaterally Gastrointestinal: Yes: Normal Bowel Sounds, Soft Musculoskeletal: Yes: Other Extremities: Yes: Other Edema: LLE: 2+, RLE: 2+ Integumentary: Yes: Erythema Neurological: Yes: Alert, Oriented Psychiatric: Yes: Alert Labs: CBC, BMP 10/07/17 06:00 10/07/17 07:45 Imaging - Results Chest X-ray: Report Reviewed, Image Reviewed Assessment/Plan Problem List - Problems (1) Anemia Code(s): D64.9 - ANEMIA, UNSPECIFIED (2) Leg edema Code(s): R60.0 - LOCALIZED EDEMA (3) Alcohol dependence with uncomplicated withdrawal Code(s): F10.230 - ALCOHOL DEPENDENCE WITH WITHDRAWAL, UNCOMPLICATED (4) Hypoalbuminemia Code(s): E88.09 - [facility] DISORDERS OF PLASMA-PROTEIN METABOLISM, NEC (5) Thrombocytopenia Code(s): D69.6 - THROMBOCYTOPENIA, UNSPECIFIED detox note noted after looking at the legs it is mostly edema i have very low suspicion for cellulitits plan continue current mgmt rest as per detox will not start abx at this time rest as per the team
[2017-10-07] MEDS ORDERED: chlordiazePOXIDE HCL 25 MG CAPSULE PO PRN (14:52)
[2017-10-07] MEDS ORDERED: chlordiazePOXIDE HCL 25 MG CAPSULE PO ONE (14:52)
[2017-10-07] MEDS ORDERED: METHADONE HCL 10 MG TABLET PO SCH (15:00)
[2017-10-07 15:10] VITALS: PULSE 95
[2017-10-07] MEDS ORDERED: METHADONE 10 MG, METHADONE 5 MG PO SCH (15:30)
[2017-10-07] MEDS ORDERED: chlordiazePOXIDE HCL 25 MG CAPSULE PO SCH (17:00)
[2017-10-07 17:49] VITALS: BP 145/77; TEMP 99.6
--- NOTE | 2017-10-07 18:20 | DS ---
Physical Examination Vital Signs: Vital Signs Temperature 99.6 F 10/07/17 17:47 Pulse Rate 95 H 10/07/17 17:47 Respiratory Rate 18 10/07/17 17:47 Blood Pressure 145/77 10/07/17 17:47 O2 Sat by Pulse Oximetry (%) 99 10/07/17 10:00 Constitutional: Yes: No Distress HENT: Yes: Atraumatic Neck: Yes: Supple Cardiovascular: Yes: Regular Rate and Rhythm Respiratory: Yes: CTA Bilaterally Gastrointestinal: Yes: Normal Bowel Sounds Extremities: Yes: WNL Edema: Yes Edema: LLE: 1+, RLE: 1+ Peripheral Pulses WNL: Yes Neurological: Yes: Alert, Oriented Labs: CBC, BMP 10/07/17 06:00 10/07/17 07:45 Discharge Summary Reason For Visit: EDEMA OF LE, ALCOHOLISM,ANEMIA,THROMBOCYTOPENIA Condition: Guarded - Instructions Referrals: Scarlett Kim MD [Primary Care Provider] - - Home Medications Comprehensive Discharge Medication List: Ambulatory Orders Methadone [Dolophine -] 25 mg PO DAILY 10/07/17 mo home
[2017-10-07] MEDS ORDERED: THIAMINE HCL 100 MG TABLET (FP) PO SCH (22:00)
[2017-10-08] MEDS ORDERED: PRENATAL VITAMINS W/ FOLIC ACID TABLET (FP) PO SCH (10:00)
[2017-10-08] MEDS ORDERED: METHADONE HCL 10 MG TABLET PO SCH ×2 (15:30)
[2017-10-08] MEDS ORDERED: chlordiazePOXIDE HCL 25 MG CAPSULE PO SCH (17:00)
[2017-10-09] MEDS ORDERED: chlordiazePOXIDE 5 MG CAPSULE PO SCH (17:00)
== END 2017-10-07 19:24 | disposition home or self-care (01) ==
LOC: JER 11:34 → UNDOADMOB 15:07 → JERBED 15:07 → INTOOBSV 15:07 → J4S 21:00 → JERBED 21:00 → J4S 10-07 14:36 → JERBED 10-07 14:36
PROVIDERS: ADMIT Internal Medicine; ATTEND Internal Medicine
PROC: 3E03329 Introduction of Other Anti-infective into Peripheral Vein, Percutaneous Approach (ICD-10-PCS; principal; 2017-10-07)
PROC: 3E033GC Introduction of Other Therapeutic Substance into Peripheral Vein, Percutaneous Approach (ICD-10-PCS; 2017-10-07)
PROC: 3E013GC Introduction of Other Therapeutic Substance into Subcutaneous Tissue, Percutaneous Approach (ICD-10-PCS; 2017-10-07)
DX: R60.0 Localized edema (principal); F10.230 Alcohol dependence with withdrawal, uncomplicated; F11.20 Opioid dependence, uncomplicated; F17.210 Nicotine dependence, cigarettes, uncomplicated; D64.9 Anemia, unspecified; E88.09 Other disorders of plasma-protein metabolism, not elsewhere classified; D69.6 Thrombocytopenia, unspecified; K72.00 Acute and subacute hepatic failure without coma
CPT/HCPCS: 36415; 71046-TC-FY; 80053; 81003; 82550; 83735; 83880; 84100; 84484; 85025; 85610; 85730; 86850; 86900; 86901; 87086; 93005; 93010; 93306-TC; 99285-25; G0378; J1644